=== PATIENT | male | born 1975 | race African-American/Black ===

== ENCOUNTER 2016-12-29 11:52 | Emergency (ER) | payer SELFPAY ==
[~2016-12-29] VITALS: Ht 182.9 cm; Wt 118.0 kg
[2016-12-29 12:00] VITALS: BP 127/80
== END 2016-12-29 14:43 | disposition left against medical advice (07) ==
LOC: ER 11:52
DX: Z53.21 Procedure and treatment not carried out due to patient leaving prior to being seen by health care provider (principal)
CPT/HCPCS: 93005